=== PATIENT | female | born 1980 ===

== ENCOUNTER → 2025-01-26 | Outpatient (CLI) | payer BC ==
[~2025-01-26] MED LIST: DOCU100 PO; Diethylpropion25 MG; IBUP600 PO; IBUP800 PO; PRAV20; Percocet 5-3251 EACH PO; Testosterone5 GM
[2025-01-26 16:20] LABS: Source, Urine Clean Catch
[2025-01-26 19:12] LABS: Bilirubin, Urine Neg (Neg); Color, Urine Yellow (P-Yellow); Glucose Qualitative, Urine Neg (Neg); Ketones, Urine 1+ (Neg); Leukocyte Esterase, Urine Neg (Neg); Protein, Urine Neg (Neg); Specific Gravity, Urine 1.025 (1.003-1.022); Urobilinogen, Urine NORM (Normal)
[2025-01-26 19:41] LABS: White Blood Cells, Urine 0-2 /hpf (0-5)
[2025-01-26 20:25] LABS: Bacterial Vaginosis PCR Negative (NEGATIVE); Candida Group, PCR NOT DETECTED (NOT DETECT); Candida glabrata-krusei, PCR NOT DETECTED (NOT DETECT)
== END ==
LOC: LAB 16:16 → LAB SHORT 16:16
PROVIDERS: Obstetrics & Gynecology
DX: N76.0 Acute vaginitis (principal); R30.9 Painful micturition, unspecified
CPT/HCPCS: 81001; 81515

== ENCOUNTER → 2025-02-27 | Outpatient (CLI) | payer BC ==
[2025-03-04 02:56] LABS: MYCOPLASMA GENITALIUM BY PCR Not Detected; MYCOPLASMA HOMINIS BY PCR Not Detected; UREAPLASMA MYCOPLASMA SOURCE Urine; UREAPLASMA PARVUM BY PCR Not Detected; UREAPLASMA UREALYTICUM BY PCR Not Detected
== END ==
LOC: LAB 17:57 → LAB SHORT 17:57
PROVIDERS: Obstetrics & Gynecology
DX: R10.2 Pelvic and perineal pain (principal)
CPT/HCPCS: 87563; 87798

== ENCOUNTER → 2025-03-10 | Outpatient (CLI) | payer BC ==
[2025-03-10 20:59] LABS: Bacterial Vaginosis PCR Negative (NEGATIVE); Candida Group, PCR NOT DETECTED (NOT DETECT); Candida glabrata-krusei, PCR NOT DETECTED (NOT DETECT)
== END ==
LOC: LAB SHORT 14:26 → LAB 14:26
PROVIDERS: Obstetrics & Gynecology
DX: N76.0 Acute vaginitis (principal)
CPT/HCPCS: 81515